=== PATIENT | male | born 1955 | race Caucasian/White ===

== ENCOUNTER 2017-10-26 15:58 | Observation (INO) | payer MEDICAID, OTHER ==
[~2017-10-26 15:58] MED LIST: ASPI325T PO; DICL75 PO; FURO20TA PO; HYDR7.5T32 OR; LANO0.2510 PO; METO50; SPIR25TA PO
[2017-10-26 16:12] VITALS: BP 122/68; PULSE 57; RESP 24; TEMP 97.4; O2SAT 97
[2017-10-26 17:10] VITALS: BP 122/82; PULSE 57; RESP 17; O2SAT 96
--- NOTE | 2017-10-26 17:10 | PD ---
HPI Chief Complaint: Chest Pain Time Seen by Provider: 16:42 Travel History International Travel<30 days: No Contact w/Intl Traveler<30days: No Traveled to known affect area: No History of Present Illness HPI 62-year-old male with a history of congestive heart failure presents emergency department complaining of shortness of breath, chest pain, and diaphoresis for "a while". Patient states that she is here today because his chest pain and shortness of breath have increased. Patient describes chest pain as right midsternal region radiating to the left anterior chest area described as achy and 4-5 out of 10 pain. Says he has had associated diaphoresis without nausea or vomiting. He denies any unusual back or abdominal pain. Patient says that he had an echocardiogram recently his ejection fraction was 25%. Patient is due to follow-up with dry ice maker, he does not know the name, next month for a possible heart cath. Patient denies fevers or chills. Has a history of hypertension, hyperlipidemia. He does take aspirin daily and to take his medication today. Denies tobacco use. PFSH Past Medical History Asthma: No Autoimmune Disease: No Blood Disorders: No Cancer: No Cardiovascular Problems: Yes Chemotherapy: No Chest Pain: Yes Congestive Heart Failure: Yes COPD: No Diabetes: No Endocrine: No Genitourinary: No Hypertension: Yes Immune Disorder: No Musculoskeletal: No Neurologic: No Psychiatric: No Respiratory: Yes Radiation Therapy: No Seizures: No Sickle Cell Disease: No Sleep Apnea: No Thyroid Disease: No Past Surgical History Abdominal Surgery: No AICD: No Cardiac Surgery: No Ear Surgery: No Endocrine Surgery: No Eye Surgery: No Genitourinary Surgery: No Gynecologic Surgery: No Oral Surgery: No Pacemaker: No Thoracic Surgery: No Social History Alcohol Use: Yes (SOCIALLY ON WEEKENDS) Tobacco Use: No Substance Use: No Allergies-Medications (Allergen,Severity, Reaction): Coded Allergies: No Known Allergies (Verified Allergy, Severe, 03/03/12) Reported Meds & Prescriptions Reported Meds & Active Scripts Active Reported Atorvastatin (Atorvastatin Calcium) 80 Mg Tab 80 Mg PO HS Lisinopril 20 Mg Tab 20 Mg PO DAILY Review of Systems Except as stated in HPI: all other systems reviewed are Neg Physical Exam Narrative GENERAL: Well-developed, well-nourished in no apparent distress, sitting upright SKIN: Focused skin assessment warm/dry. HEAD: Atraumatic. Normocephalic. EYES: Pupils equal and round. No scleral icterus. No injection or drainage. ENT: No nasal bleeding or discharge. Mucous membranes pink and moist. NECK: Trachea midline. No JVD. CARDIOVASCULAR: Regular rate and rhythm. No murmur appreciated. RESPIRATORY: No accessory muscle use. Faint rales particularly in the right lung echeverria GASTROINTESTINAL: Abdomen soft, non-tender, nondistended. Hepatic and splenic margins not palpable. MUSCULOSKELETAL: No obvious deformities. No clubbing. No cyanosis. No edema. NEUROLOGICAL: Awake and alert. No obvious cranial nerve deficits. Motor grossly within normal limits. Normal speech. PSYCHIATRIC: Appropriate mood and affect; insight and judgment normal. Data Data Last Documented VS Vital Signs Date Time Temp Pulse Resp B/P (MAP) Pulse Ox O2 Delivery O2 Flow Rate FiO2 10/26/17 18:25 52 16 109/64 (79) 97 Room Air 10/26/17 16:12 97.4 Orders Orders Electrocardiogram (10/26/17 16:14) B-Type Natriuretic Peptide (10/26/17 16:14) Ckmb (Isoenzyme) Profile (10/26/17 16:14) Complete Blood Count With Diff (10/26/17 16:14) Comprehensive Metabolic Panel (10/26/17 16:14) Prothrombin Time / Inr (Pt) (10/26/17 16:14) Act Partial Throm Time (Ptt) (10/26/17 16:14) Troponin I (10/26/17 16:14) Lipase (10/26/17 16:14) Chest, Pa & Lat (10/26/17 16:14) CKMB (10/26/17 16:38) CKMB% (10/26/17 16:38) Admit Order (Ed Use Only) (10/26/17 19:45) Activity Bed Rest With Brp (10/26/17 19:45) Vital Signs (Adult) Q4H (10/26/17 19:45) Cardiac Rhythm .As Directed (10/26/17 19:45) Notify Dr: Other .PRN (10/26/17 19:45) Notify Dr. Parameters (10/26/17 19:45) Resp Oxygen Nasal Cannula (10/26/17 ) Ckmb (Isoenzyme) Profile (10/26/17 19:45) Ckmb (Isoenzyme) Profile (10/26/17 22:45) Troponin I (10/26/17 19:45) Troponin I (10/26/17 22:45) Electrocardiogram (10/26/17 19:45) Electrocardiogram (10/26/17 22:45) ^ Obtain (10/26/17 19:45) Sodium Chloride 0.9% Flush (Ns Flush) (10/26/17 19:45) Sodium Chloride 0.9% Flush (Ns Flush) (10/26/17 21:00) Ondansetron Inj (Zofran Inj) (10/26/17 19:45) Lead Slot Technician / Telemetry DAVID.Q8H (10/26/17 19:45) CKMB (10/26/17 19:50) CKMB% (10/26/17 19:50) CKMB (10/26/17 22:50) CKMB% (10/26/17 22:50) Labs Laboratory Tests Test 10/26/17 16:38 10/26/17 18:53 Prothrombin Time 10.5 SEC Prothromb Time International Ratio 1.0 RATIO Activated Partial Thromboplast Time 25.8 SEC Blood Urea Nitrogen 18 MG/DL Creatinine 1.12 MG/DL Random Glucose 103 MG/DL Total Protein 6.7 GM/DL Albumin 3.6 GM/DL Calcium Level 8.9 MG/DL Alkaline Phosphatase 53 U/L Aspartate Amino Transf (AST/SGOT) 32 U/L Alanine Aminotransferase (ALT/SGPT) 39 U/L Total Bilirubin 0.7 MG/DL Sodium Level 140 MEQ/L Potassium Level 4.3 MEQ/L Chloride Level 105 MEQ/L Carbon Dioxide Level 29.2 MEQ/L Anion Gap 6 MEQ/L Estimat Glomerular Filtration Rate 66 ML/MIN Total Creatine Kinase 203 U/L Creatine Kinase MB 3.5 NG/ML Troponin I LESS THAN 0.02 NG/ML B-Type Natriuretic Peptide 51 PG/ML Lipase 116 U/L White Blood Count 5.2 TH/MM3 Red Blood Count 4.53 MIL/MM3 Hemoglobin 14.9 GM/DL Hematocrit 41.9 % Mean Corpuscular Volume 92.4 FL Mean Corpuscular Hemoglobin 32.8 PG Mean Corpuscular Hemoglobin Concent 35.5 % Red Cell Distribution Width 13.4 % Platelet Count 167 TH/MM3 Mean Platelet Volume 9.9 FL Neutrophils (%) (Auto) 54.1 % Lymphocytes (%) (Auto) 33.8 % Monocytes (%) (Auto) 7.5 % Eosinophils (%) (Auto) 4.0 % Basophils (%) (Auto) 0.6 % Neutrophils # (Auto) 2.8 TH/MM3 Lymphocytes # (Auto) 1.8 TH/MM3 Monocytes # (Auto) 0.4 TH/MM3 Eosinophils # (Auto) 0.2 TH/MM3 Basophils # (Auto) 0.0 TH/MM3 CBC Comment DIFF FINAL Differential Comment MDM Medical Decision Making Medical Screen Exam Complete: Yes Emergency Medical Condition: Yes Differential Diagnosis Acute on chronic congestive heart failure, angina, STEMI, NSTEMI Narrative Course 62-year-old male with a history of congestive heart failure, hyperlipidemia, hypertension presents emergency department complaining of chest discomfort and shortness of breath that has been persistent for several months. Patient is here today because he has more short of breath and the chest pain has been persistent and is concerned. Vitals are stable. EKG shows Sinus bradycardia with nonspecific ST segment changes. Possible LBBB. (last EKG from 2005 showed left axis deviation) The exam findings demonstrate faint rales on lung exam. Labs and imaging studies ordered. Last Impressions Chest X-Ray 10/26/17 1614 Signed Impressions: Service Date/Time: Thursday, October 26, 2017 17:56 - CONCLUSION: No acute cardiopulmonary disease. Javon Peña MD BNP 51, Troponin normal. No electrolyte abnormalities. CBC pending as of admission to chest pain center. Diagnosis Primary Impression: Chest pain Qualified Codes: R07.89 - Other chest pain Admitting Information Admitting Physician Requests: Observation Scripts Aspirin (Tgt Aspirin) 81 Mg Chw 81 MG CHEW DAILY for Blood Clot Prevention, #30 EA Prov: Rae Coronado MD 10/28/17 Furosemide (Furosemide) 20 Mg Tab 40 MG PO DAILY for edema , #30 TAB 0 Refills Prov: Rae Coronado MD 10/28/17 Metoprolol Succinate ER 24 HR (Metoprolol Succinate ER 24 HR) 50 Mg Tab 50 MG PO DAILY for Blood Pressure Management, #30 TAB 0 Refills Prov: Christofer Oliver 10/27/17 Condition: Stable Juliette Vann Oct 26, 2017 17:10
[2017-10-26] MEDS ORDERED: ATOR80TA45 PO (17:12)
[2017-10-26] MEDS ORDERED: LISI-515 PO (17:12)
[2017-10-26] MEDS ORDERED: ASPI-183 PO (17:12)
[2017-10-26] MEDS ORDERED: FURO20TA PO (17:12)
[2017-10-26] MEDS ORDERED: METO50TA PO (17:12)
[2017-10-26 17:23] LABS: PROTHROMBIN TIME - PATIENT 10.5 SEC (9.8-11.6)
[2017-10-26 17:31] LABS: ALKALINE PHOSPHATASE 53 U/L (45-117); TOTAL BILIRUBIN ADULT 0.7 MG/DL (0.2-1.0); TOTAL PROTEIN 6.7 GM/DL (6.4-8.2); TROPONIN I LESS THAN 0.02 NG/ML (0.02-0.05)
[2017-10-26 17:34] LABS: ALBUMIN 3.6 GM/DL (3.4-5.0); ALT (GPT) 39 U/L (12-78); AST (GOT) 32 U/L (15-37); BICARBONATE 29.2 MEQ/L (21.0-32.0); BLOOD UREA NITROGEN 18 MG/DL (7-18); CALCIUM 8.9 MG/DL (8.5-10.1); CHLORIDE 105 MEQ/L (98-107); CREATININE 1.12 MG/DL (0.60-1.30); GLOMERULAR FILTRATION RATE 66 ML/MIN (>89); GLUCOSE,RANDOM 103 MG/DL (74-106); SODIUM (NA) 140 MEQ/L (136-145)
[2017-10-26 18:25] VITALS: BP 109/64; PULSE 52; RESP 16; O2SAT 97
--- NOTE | 2017-10-26 18:28 | RADRPT ---
EXAM DATE/TIME: 10/26/2017 17:56 [facility] COMPARISON: No previous studies available for comparison. INDICATIONS : Chest pain. MEDICAL HISTORY : Hypertension. Congestive heart failure. SURGICAL HISTORY : None. ENCOUNTER: Initial ACUITY: 1 month PAIN SCORE: 7/10 LOCATION: Bilateral chest FINDINGS: PA and lateral views of the chest demonstrate the lungs to be symmetrically aerated without evidence of mass, infiltrate or effusion. The cardiomediastinal contours are unremarkable. Osseous structure s are intact. CONCLUSION: No acute cardiopulmonary disease. Javon Peña MD on October 26, 2017 at 18:26 Board Certified Radiologist. This report was verified electronically.
[2017-10-26] MEDS ORDERED: ONDANSETRON HCL 4 MG/2 ML VIAL IV PUSH PRN (19:45)
[2017-10-26] MEDS ORDERED: SODIUM CHLORIDE 0.9% FLUSH 10 ML FLUSH IV FLUSH PRN (19:45)
[2017-10-26] MEDS ORDERED: IOHEXOL 350 MG/ML 100 ML BTL (for Cath Lab) OTHER ONE (19:49)
[2017-10-26 20:23] LABS: AUTOMATED NEUTROPHIL # 2.8 TH/MM3 (1.8-7.7); BASOPHIL % 0.6 % (0.0-2.0); EOSINOPHIL # 0.2 TH/MM3 (0-0.4); HEMATOCRIT 41.9 % (39.0-51.0); HEMOGLOBIN 14.9 GM/DL (13.0-17.0); LYMPH % 33.8 % (9.0-44.0); LYMPHOCYTE # 1.8 TH/MM3 (1.0-4.8); MEAN CELL VOLUME 92.4 FL (80.0-100.0); MEAN CORPUSCULAR HEMOGLOBIN 32.8 PG (27.0-34.0); MEAN CORPUSCULAR HGB CONC 35.5 % (32.0-36.0); MEAN PLATELET VOLUME 9.9 FL (7.0-11.0); MONO % 7.5 % (0.0-8.0); MONOCYTE # 0.4 TH/MM3 (0-0.9); NEUT % 54.1 % (16.0-70.0); PLATELET COUNT 167 TH/MM3 (150-450); RED BLOOD COUNT 4.53 MIL/MM3 (4.50-5.90); RED CELL DISTRIBUTION WIDTH 13.4 % (11.6-17.2); WHITE BLOOD COUNT 5.2 TH/MM3 (4.0-11.0)
[2017-10-26] MEDS: SODIUM CHLORIDE 0.9% FLUSH 10 ML FLUSH IV FLUSH SCH (21:00)
[2017-10-26 22:01] LABS: TROPONIN I LESS THAN 0.02 NG/ML (0.02-0.05)
[2017-10-26 22:23] VITALS: BP 128/62; PULSE 62; RESP 18; TEMP 97.9; O2SAT 96
[2017-10-26 23:43] LABS: TROPONIN I LESS THAN 0.02 NG/ML (0.02-0.05)
[2017-10-27] VITALS (8 sets, daily range): BP systolic 109–157; BP diastolic 63–89; PULSE 47–89; RESP 18–20; TEMP 97.9–98.8; O2SAT 92–98
[2017-10-27] MEDS: SODIUM CHLORIDE 0.9% FLUSH 10 ML FLUSH IV FLUSH SCH ×2 (08:24→20:45)
[2017-10-27] MEDS ORDERED: SODIUM CHLOR 0.9% 1000 ML INJ 1,000 ML IV SCH (10:43)
[2017-10-27] MEDS ORDERED: METO1TAB9 PO (10:48)
[2017-10-27] MEDS ORDERED: FUROSEMIDE 20 MG TAB PO SCH (11:00)
[2017-10-27] MEDS ORDERED: ASPIRIN 325 MG TAB PO SCH (11:00)
[2017-10-27] MEDS ORDERED: METOPROLOL TARTRATE 25 MG TAB PO PRN (11:30)
[2017-10-27] MEDS ORDERED: CHLORHEXIDINE GLUCONATE 2 % 1 PACK (2 CLOTHS) TOPICAL PRN (11:30)
[2017-10-27] MEDS ORDERED: LACTATED RINGER'S 1000 ML IV PRN (11:30)
[2017-10-27] MEDS ORDERED: SODIUM CHLORID 0.9% 500 ML IV PRN (11:30)
[2017-10-27] MEDS ORDERED: POVIDONE IODINE 5% (ANTISEPSIS KIT) 4 APPLICATIONS EACH NARE PRN (11:30)
[2017-10-27] MEDS: METOPROLOL SUCCINATE 50 MG EXTENDED RELEASE TAB PO SCH (11:35)
[2017-10-27] MEDS: LISINOPRIL 20 MG TAB PO SCH (11:35)
--- NOTE | 2017-10-27 11:41 | HHI.HP ---
[facility] Primary Care Physician Cody Caballero D.O. Chief Complaint Chest pain History of Present Illness This is a 62-year-old male with history of hypertension and hyperlipidemia that presents to ED with a complaint of chest pain with shortness of breath with exertion intermittently for the past month. He saw his single end sewer for this and had a stress test a couple weeks ago states that he was told that his heart function was down and that he would need to have a procedure done. He states the discomfort occurs with walking and will last anywhere from 30 minutes to an hour. He states that he will take a nitro which she will use to help the symptoms within about 15-20 minutes. Is followed diaphoretic at time as well. No nausea. Currently denies chest discomfort. Voices compliance with medications. Denies recent illness. Denies fevers or chills. Review of Systems General: Patient denies fevers, chills, and recent travel HEENT: Patient denies headache, sore throat, difficulty swallowing. Cardiovascular: Has the chest discomfort as mentioned above. Denies sensation of heart beating rapidly or irregularly. No syncope. Denies diaphoresis. Respiratory: He has been short of breath. Denies inspirational chest discomfort. Denies coughing wheezing or hemoptysis. GI: Patient denies nausea, vomiting, diarrhea, abdominal pain, bloody stools. Musculoskeletal: Patient denies joint pain or edema. Denies calf pain or edema. Neurovascular: Patient denies numbness, tingling, weakness in extremities. Denies headache. Endocrine: Denies polyuria and polydipsia. Hematologic: Denies easy bruising. Skin: Denies rash or itching. Past Family Social History Allergies: Coded Allergies: No Known Allergies (Verified Allergy, Severe, 03/03/12) Past Medical History Hypertension and hyperlipidemia. Denies diabetes and known CAD. Past Surgical History Noncontributory. Reported Medications Reported Meds & Active Scripts Active Metoprolol Succinate ER 24 HR (Metoprolol Succinate) 50 Mg Tab 50 Mg PO DAILY Reported Atorvastatin (Atorvastatin Calcium) 80 Mg Tab 80 Mg PO HS Furosemide 20 Mg Tab 20 Mg PO DAILY Lisinopril 20 Mg Tab 20 Mg PO DAILY Aspirin 325 Mg Tab 325 Mg PO DAILY Active Ordered Medications Current Medications Medications (Trade) Dose Ordered Sig/Blanca Route Start Time Stop Time Status Last Admin (NS Flush) 2 ml UNSCH PRN IV FLUSH 10/26/17 19:45 (NS Flush) 2 ml BID IV FLUSH 10/26/17 21:00 10/27/17 08:24 (Zofran Inj) 4 mg Q6H PRN IV PUSH 10/26/17 19:45 Sodium Chloride 1,000 ml @ 50 mls/hr Q20H IV 10/27/17 10:43 10/28/17 05:25 10/27/17 11:27 (Lipitor) 80 mg HS PO 10/27/17 21:00 (Aspirin) 325 mg DAILY PO 10/27/17 11:00 (Lasix) 20 mg DAILY PO 10/27/17 11:00 (Prinivil) 20 mg DAILY PO 10/27/17 11:00 (Toprol Xl) 50 mg DAILY PO 10/27/17 11:00 Lactated Ringer's 1,000 ml @ 30 mls/hr Q24H PRN IV 10/27/17 11:30 10/30/17 11:29 Sodium Chloride 500 ml @ 30 mls/hr [id number] PRN IV 10/27/17 11:30 10/30/17 11:29 (Lopressor) 25 mg MANAGER OF INTERNATIONAL PRN PO 10/27/17 11:30 10/30/17 11:29 (Betadine 5% Antisepsis Kit) 1 applic MANAGER [employer] PRN EACH NARE 10/27/17 11:30 10/30/17 11:29 (Chlorhexidine 2% Cloth) 3 pack MANAGER OF [employer] PRN TOPICAL 10/27/17 11:30 10/30/17 11:29 Family History Denies family history of CAD. Social History Non-smoker. Occasional alcohol. Denies illicit drugs. Physical Exam Vital Signs Vital Signs Date Time Temp Pulse Resp B/P (MAP) Pulse Ox O2 Delivery O2 Flow Rate FiO2 10/27/17 07:40 98.8 47 18 120/67 (84) 97 10/27/17 04:35 97.9 62 18 109/63 (78) 92 10/27/17 04:06 50 10/27/17 00:05 62 10/26/17 22:23 97.9 62 18 128/62 (84) 96 10/26/17 20:13 10/26/17 18:25 52 16 109/64 (79) 97 Room Air 10/26/17 17:10 57 17 122/82 (95) 96 Room Air 10/26/17 16:12 97.4 57 24 122/68 (86) 97 Physical Exam GENERAL: This is a well-nourished, well-developed patient, in no apparent distress. Patient speaks in clear complete sentences. Patient is pleasant. HEENT: Head is atraumatic and normocephalic. Neck is supple without lymphadenopathy and trachea is midline. No JVD or carotid bruits. CARDIOVASCULAR: Regular rate and rhythm without murmurs, gallops, or rubs. RESPIRATORY: Clear to auscultation. Breath sounds equal bilaterally. No wheezes , rales, or rhonchi. Chest wall is nontender. No use of accessory muscles. GASTROINTESTINAL: Abdomen is nontender, nondistended. Abdomen soft. No obvious pulsatile mass or bruit. No CVA tenderness. Strong femoral pulses bilaterally. Normal bowel sounds in all quadrants. MUSCULOSKELETAL: Patient is moving upper and lower extremities freely. No calf tenderness or edema, no Homans sign. Strong pulses in upper and lower extremities. NEUROLOGICAL: Patient is alert and oriented. Cranial nerves 2-12 are grossly intact. No focal deficits and speech is clear. SKIN: No rash and turgor is normal. Laboratory Laboratory Tests Test 10/26/17 16:38 10/26/17 18:53 10/26/17 19:50 10/26/17 22:50 Prothrombin Time 10.5 Prothromb Time International Ratio 1.0 Activated Partial Thromboplast Time 25.8 Blood Urea Nitrogen 18 Creatinine 1.12 Random Glucose 103 Total Protein 6.7 Albumin 3.6 Calcium Level 8.9 Alkaline Phosphatase 53 Aspartate Amino Transf (AST/SGOT) 32 Alanine Aminotransferase (ALT/SGPT) 39 Total Bilirubin 0.7 Sodium Level 140 Potassium Level 4.3 Chloride Level 105 Carbon Dioxide Level 29.2 Anion Gap 6 Estimat Glomerular Filtration Rate 66 Total Creatine Kinase 203 180 164 Creatine Kinase MB 3.5 3.0 2.6 Troponin I LESS THAN 0.02 LESS THAN 0.02 LESS THAN 0.02 B-Type Natriuretic Peptide 51 Lipase 116 White Blood Count 5.2 Red Blood Count 4.53 Hemoglobin 14.9 Hematocrit 41.9 Mean Corpuscular Volume 92.4 Mean Corpuscular Hemoglobin 32.8 Mean Corpuscular Hemoglobin Concent 35.5 Red Cell Distribution Width 13.4 Platelet Count 167 Mean Platelet Volume 9.9 Neutrophils (%) (Auto) 54.1 Lymphocytes (%) (Auto) 33.8 Monocytes (%) (Auto) 7.5 Eosinophils (%) (Auto) 4.0 Basophils (%) (Auto) 0.6 Neutrophils # (Auto) 2.8 Lymphocytes # (Auto) 1.8 Monocytes # (Auto) 0.4 Eosinophils # (Auto) 0.2 Basophils # (Auto) 0.0 CBC Comment DIFF FINAL Differential Comment Result Diagram: 10/26/17 1853 10/26/17 1638 Imaging Last 48 hours Impressions Chest X-Ray 10/26/17 1614 Signed Impressions: Service Date/Time: Thursday, October 26, 2017 17:56 - CONCLUSION: No acute cardiopulmonary disease. Javon Peña MD Course EKGs are sinus rhythm with nonspecific inferior and lateral T-wave changes. Caprini VTE Risk Assessment Caprini VTE Risk Assessment: Mod/High Risk (score >= 2) Caprini Risk Assessment Model Point Value = 1 Point Value = 2 Point Value = 3 Point Value = 5 Age 41-60 Minor surgery BMI > 25 kg/m2 Swollen legs Varicose veins or History of unexplained or recurrent spontaneous Oral contraceptives or hormone replacement Sepsis (< 1 month) Serious lung disease, including pneumonia (< 1 month) Abnormal pulmonary function Acute myocardial infarction Congestive heart failure (< 1 month) History of inflammatory bowel disease Medical patient at bed rest Age 61-74 Arthroscopic surgery Major open surgery (> 45 min) Laparoscopic surgery (> 45 min) Malignancy Confined to bed (> 72 hours) Immobilizing plaster cast Central venous access Age >= 75 History of VTE Family history of VTE Factor V Leiden Prothrombin [id number] Lupus anticoagulant Anticardiolipin antibodies Elevated serum homocysteine Heparin-induced thrombocytopenia Other congenital or acquired thrombophilia Stroke (< 1 month) Elective arthroplasty Hip, pelvis, or leg fracture Acute spinal cord injury (< 1 month) Prophylaxis Regimen Total Risk Factor Score Risk Level Prophylaxis Regimen 0-1 Low Early ambulation 2 Moderate Order ONE of the following: *Sequential Compression Device (SCD) *Heparin 5000 units SQ BID 3-4 Higher Order ONE of the following medications: *Heparin 5000 units SQ TID *Enoxaparin/Lovenox 40 mg SQ daily (WT < 150 kg, CrCl > 30 mL/min) *Enoxaparin/Lovenox 30 mg SQ daily (WT < 150 kg, CrCl > 10-29 mL/min) *Enoxaparin/Lovenox 30 mg SQ BID (WT < 150 kg, CrCl > 30 mL/min) AND/OR *Sequential Compression Device (SCD) 5 or more Highest Order ONE of the following medications: *Heparin 5000 units SQ TID (Preferred with Epidurals) *Enoxaparin/Lovenox 40 mg SQ daily (WT < 150 kg, CrCl > 30 mL/min) *Enoxaparin/Lovenox 30 mg SQ daily (WT < 150 kg, CrCl > 10-29 mL/min) *Enoxaparin/Lovenox 30 mg SQ BID (WT < 150 kg, CrCl > 30 mL/min) AND *Sequential Compression Device (SCD) Assessment and Plan Assessment and Plan * Chest pain: Patient had serial cardiac enzymes and EKGs for ruling out purposes. He was seen by Dr. Shepard of cardiology in the chest pain center. I discussed the patient with his single end sewer which is Dr. Holly and states that he had a stress test a couple weeks ago and a large apical defect with mild reversibility with an EF of 20%. Also had a 2D echo revealing a EF of 35% afterwards. He has requested that the patient be admitted and have cardiology consult for heart catheterization. I discussed this patient with Dr. Glover has graciously agreed to evaluate the patient will likely take him to the [facility]. Also discussed the patient with Dr. Rocha and he will accept the patient at this time. Further plan pending the evaluation of Dr. Glover. Will resume his home medications. We have requested the records of his stress test from his single end sewer office. Patient is agreeable to this plan. Stable at this time. * Hypertension: Continue current medication. * Hyperlipidemia: Continue current medication. Christofer Oliver Oct 27, 2017 11:41
[2017-10-27] MEDS ORDERED: NITROGLYCERIN INJ 5 ML ONE (12:32)
[2017-10-27] MEDS ORDERED: HEPARIN-NS/PF FLUSH BAG 1,000 ML IV FLUSH ONE (12:32)
[2017-10-27] MEDS ORDERED: HEPARIN SODIUM - IV 10,000 UNITS/10 ML VIAL ONE (12:32)
[2017-10-27] MEDS ORDERED: MIDAZOLAM HCL 2 MG/2 ML VIAL ONE (12:32)
[2017-10-27] MEDS ORDERED: BISACODYL 10 MG SUPP RECTAL PRN (13:30)
[2017-10-27] MEDS ORDERED: ONDANSETRON HCL 4 MG/2 ML VIAL IVP PRN (13:30)
[2017-10-27] MEDS ORDERED: SODIUM CHLORIDE 0.9% FLUSH 10 ML FLUSH IV FLUSH PRN (13:30)
[2017-10-27] MEDS ORDERED: MAGNESIUM HYDROXIDE SUSP 30 ML CUP PO PRN (13:30)
[2017-10-27] MEDS ORDERED: NALOXONE HCL 0.4 MG/ML AMP IV PUSH PRN (13:30)
[2017-10-27] MEDS ORDERED: SENNOSIDES 8.6 MG TAB PO PRN (13:30)
[2017-10-27] MEDS ORDERED: ACETAMINOPHEN 325 MG TAB PO PRN ×2 (13:30)
[2017-10-27] MEDS ORDERED: LACTULOSE SYRUP 20 GM/30 ML CUP PO PRN (13:30)
--- NOTE | 2017-10-27 13:32 | CATHPROC ---
[employer] HIS Report Study Information Study Number Admission Scheduled Start Study Start [id number] Oct 26 2017 7:48PM 10/27/2017 Oct 27 2017 11:50AM [facility] Service Cardiac Catheterization Admit Source Facility Department Emergency department [facility] - Content Publisher Physician and Clinical Staff Initial Nehemiah Jean Software Clerk Yanet Wright RN Recorder Juanita Li,RT(R) Scrub Rdaha Stanford,RT(R) Procedures Performed Procedure Location (Site) Vessel Name Coronary Angiograms LCA Left Coronary Coronary Angiograms RCA Right Coronary Wire insertion Radial (right) Radial Art. Equipment Time Content Architect Description Size Mfg Part Number Used/Scraped CATHETER, FR5 SWAN DEXTER 12:30 [employer] FR 5 [id number] *[id number] Used MONITOR TRANSDUCER, TRUWAVE [id number] 11:52 WHEELER ORDAZ * Used W/STOCKCOCK *[id number] [id number] *[id number] [id number] *[id number] 534-518T *[id number] [id number] *[id number] 11:52 [employer] INDUSTRIES PACK, CCL CUSTOM * Used *[id number] BAND, RADIAL COMPRESSION TR [id number] 13:16 [employer] 29CM Used LARGE 29 *[id number] 11:52 [employer] WIRE, 3MMJ .035 180CM 180CM Used *[id number] 11:52 NAMIC MANIFOLD, 4 PORT * Used *[id number] 11:52 [employer] OMNIPAQUE, 350 MG, 150ML 150ML [id number] Used [id number] 11:52 [employer] BLANKET,WARM AIR CCL * Used *[id number] SHEATH, FR6 TRANSRADIAL [id number] 12:29 [employer] FR 6 Used SLENDER 10CM *[id number] SHEATH, FR6 TRANSRADIAL [id number] 12:29 [employer] FR 6 Used SLENDER 10CM *[id number] Equipment Model, Serial, Lot Number and Expiration Data Description Model Number Serial Number Lot Number Expiration Date BAND, RADIAL COMPRESSION TR [id number] 04-23-2020 LARGE 29 History: Current Medications Medication Dosage/Unit Route Frequency Last Date/Time Taken ASA History: Allergies Allergy Reaction No Known Allergies History: Risk Factors Family History of Hypertension Dyslipidemia Previous MT Previous Heart Failure Premature CAD Yes Yes No No Yes Prior Valve Prior PCI Prior CABG Surgery No No No Cerebrovascular Peripheral Artery Chronic Lung On Dialysis Diabetes Disease Disease Disease No No No No No History: Risk Factors Selection Items Hyperlipidemia Obesity History: Symptoms/Diagnosis Selection Items Chest pain SOB History: Stress Tests Stress or Imaging Studies Performed Yes Standard Exercise Stress Test No Stress Echo No Stress Test SPECT Stress Test SPECT Result Stress Test SPECT Ischemia Risk/Extent Yes Positive High Stress Test CMR No Cardiac CTA Coronary Calcium Score No No History: Other Disease Selection Items HTN History: Other Current Smoker No Labs Hgb (g/dl) Hct (%) RBC (MIL/MM3) WBC (l/cumm) Platelets (thousands) 11.60-17.00 35.00-51.00 4.00-5.90 4.00-11.00 150.00-450.00 14.9 41.9 4.5 5.2 167 Glucose (mg/dl) BUN (mg/dl) Creatinine (mg/dl) BUN:Creatinine (1:x) 74.00-106.00 7.00-18.00 0.50-1.30 10.00-20.00 103 18 1.1 16.4 Na (meq/l) K (meq/l) Cl (meq/l) CO2 (mmol/L) Ca (mg/dl) 136.00-145.00 3.50-5.10 98.00-107.00 21.00-32.00 8.50-10.10 140 4.3 105 29.2 8.9 PT (sec) PTT (sec) INR (PTT:PT) 9.80-11.60 24.30-30.10 0.90-1.10 10.5 25.8 1 Troponin I (ng/ml) CPK (u/l) CPK-MB (ng/ML) 0.02-0.05 26.00-308.00 0.50-3.60 0.02 203 3.5 Medication Medication Total Dose (Bolus/Oral) Medication Total Dosage/Unit 1% XYLOCAINE 40 mL FENTANYL 50 mcg RADIAL COCKTAIL 5 mL (Bolus) Medications (Bolus/Oral) Medication Time Given Dosage/Unit Administered By Reason RADIAL COCKTAIL 10/27/2017 12:38:25 PM 5 mL (Bolus) Nehemiah Glover Patient received 5 mL (Bolus) RADIAL COCKTAIL via Radial. Using [Solution Name]. Reason: Ntg 200mcg H eparin 4100U. FENTANYL 10/27/2017 12:42:16 PM 50 mcg Yanet Wright 50 mcg FENTANYL given in lab by Yanet Wright, LEYDI in Left Antecubital via Peripheral IV. Ordered by Nehemiah Glover 1% XYLOCAINE 10/27/2017 12:42:28 PM 20 mL Nehemiah Glover 20 mL 1% XYLOCAINE given in lab by Nehemiah Glover in Right Radial via Subcutaneous. 1% XYLOCAINE 10/27/2017 12:46:40 PM 20 mL Nehemiah Glover 20 mL 1% XYLOCAINE given in lab by Nehemiah Glover in Right arm via Subcutaneous. Medication (Drip) Medication Time Given Dosage/Unit Concentration/Unit Diluent (ml) Solution IV Solutions 10/27/2017 12:12:05 PM 0 mL (IV) 500 NaCl .9 Patient arrived on IV Solutions in Left Antecubital via Peripheral IV. Pump/Drip Flow = 20 ml/hr usin g NaCl .9. Initial Case Assessment Cardiovascular HR Rhythm NIBP Chest Pain 58 viktor 143/89 0 Edema Present Skin color Skin None Normal Warm Dry Circulatory - Right Pulses Dorsalis Pedis Femoral Radial 2 2 3 Scale (0,1,2,3,4,d) Circulatory - Left Pulses Dorsalis Pedis Femoral Radial 2 2 Scale (0,1,2,3,4,d) Neurological State Oriented to time-place- Alert Moves all extremities person Respiration - General Respiration Rate SpO2 (%) (B/min) 17 96 Chronological Log Time Study Chronological Log 12:11:12 Patient arrived via Bed. 12:11:13 Patient Name, D.O.B, / Armband Verified By R.N. 12:11:14 Consent signed by the physician and the patient and verified by the Content Publisher staff. 12:11:15 Pre-op and post- op instructions given; patient acknowledges understanding of instructions. 12:11:15 Verbal Stimulation=2 Physical Stimulation=2 Airway=2 Respiration=2 TOTAL=8. (0=absent, 1=li mited, 2=present) 12:11:16 Presedation assessment performed by Content Publisher RN. 12:11:30 Allens test performed on the right radial and ulnar artery. 12:11:33 Patient has been NPO for More than 6Hrs. 12:11:34 Skin Breakdown- none per patient. 12:11:49 Patient Warmer Placed on the Table. 12:11:51 [place] Prominences Protected 12:11:53 A # 20 IV was noted in the Hand (right). Grade = 0 12:12:05 Patient arrived on IV Solutions in Left Antecubital via Peripheral IV. Pump/Drip Flow = 20 ml/hr using NaCl .9. 12:12:31 History and physical on the chart or being dictated. 12:12:32 A # 20 IV was noted in the Antecubital (left). Grade = 0 Assessment: Initial Case, HR=58 BPM, Rhythm=viktor, CJQU=535/89 mmhg, Chest Pain=0, Edema=None, Color=Normal, Skin = Warm, Dry Right Pulses: Matti Ped=2, Femoral=2, Radial=3 12:13:16 Left Pulses: Matti Ped=2, Femoral=2 Neurological: State=Alert, Ox3, HOOD Respiration: Resp=17 B/min, SpO2=96 % Vitals capture started with the following parameters, Patient=Adult, Interval=5 min, Initial Pr anfbyg=139 mmHg, 12:23:02 Deflation Rate=5 mmHg, Cuff placed on Left Leg 12:23:52 Reference ECG taken 12:24:17 HR=64 bpm, UJER=379/89 mmhg, SpO2=95.0 %, Resp=15 B/min 12:25:30 MD arrived. Right Radial and right brachial and bilateral groins prepped with 2% chlorhexidine, and draped after a 3 min. waiting 12:26:40 time. 12:28:37 HR=58 bpm, BAIN=189/96 mmhg, SpO2=97.0 %, Resp=15 B/min 12:33:42 HR=52 bpm, IOXD=373/80 mmhg, SpO2=98.0 %, Resp=17 B/min 12:36:43 Pressure channel 1 zeroed. Patient received 5 mL (Bolus) RADIAL COCKTAIL via Radial. Using [Solution Name]. Reason: Ntg 20 0mcg Heparin 12:38:25 4100U. 12:38:39 HR=53 bpm, EKHF=074/89 mmhg, SpO2=95 %, Resp=13 B/min Time Out. Correct patient, correct procedure, correct physician, power injector not loaded with contrast with surgical 12:40:34 team present. Time Out Concurred by MD and individual staff in procedure. 12:41:39 Case Start 50 mcg FENTANYL given in lab by Yanet Wright RN in Left Antecubital via Peripheral IV. Orde red by Adalberto, 12:42:16 Nehemiah Lizarraga. 12:42:28 20 mL 1% XYLOCAINE given in lab by Nehemiah Glover in Right Radial via Subcutaneous. 12:43:36 Access site was Right Radial Artery. 12:43:38 HR=53 bpm, QEYS=944/93 mmhg, SpO2=94 %, Resp=18 B/min A SHEATH, FR6 TRANSRADIAL SLENDER 10CM FR 6 was advanced into the Radial (right) using the Perc utaneous 12:43:52 technique. 12:46:40 20 mL 1% XYLOCAINE given in lab by Nehemiah Glover in Right arm via Subcutaneous. 12:48:41 HR=56 bpm, IYTL=607/85 mmhg, SpO2=90.0 %, Resp=15 B/min 12:49:10 Access site was right Brachial vein via ultrasound. A SHEATH, FR6 TRANSRADIAL SLENDER 10CM FR 6 was advanced into the Brach. Vein (right) using the Percutaneous 12:49:24 technique. 12:50:30 A CATHETER, FR5 SWAN DEXTER MONITOR FR 5 was inserted via Brach. Vein (right) Recorded Pressure: PCW, HR=60, Condition=Condition 1 12:51:26 (Pulmonary Capillary Wedge) PCW 25//19 12:52:05 Saturation: Site=Ao (Aorta) , O2=98 %, Hgb=14.9 gm/dl, Condition=Condition 1. Used in calcu lation. 12:52:08 Saturation: Site=PA (Pulmonary Artery) , O2=69.8 %, Hgb=14.9 gm/dl, Condition=Condition 1. Used in calculation. Recorded Pressure: MPA, HR=53, Condition=Condition 1 12:52:53 (Main Pulmonary Artery) MPA 35/18/25 12:53:40 HR=54 bpm, LDPB=079/88 mmhg, SpO2=92 %, Resp=17 B/min Recorded Pressure: RV, HR=57, Condition=Condition 1 12:54:35 (Right Ventricle) RV 33/6/13 Recorded Pressure: RA, HR=50, Condition=Condition 1 12:55:01 (Right Atrium) RA 05/08/10 12:55:10 [place] Dexter Catheter Removed A JR 4.0 INFINITI CATHETER FR 5 was advanced over a wire. OMNIPAQUE, 350 MG, 150ML 150ML was us ed for 12:55:51 injections. Recorded Pressure: LV, HR=54, Condition=Condition 1 12:58:14 (Left Ventricle) LV 124/12/29 Recorded Pressure: LV, Ao, HR=51, Condition=Condition 1 12:58:36 (Left Ventricle) LV 127/13/31, (Aorta) Ao 127/79/99 12:58:41 HR=51 bpm, AJCL=477/84 mmhg, SpO2=93 %, Resp=18 B/min 13:00:47 A WIRE, 3MMJ .035 180CM 180CM was inserted via Radial (right). 13:01:53 Wire removed After removing the current catheter a JL 3.5 INFINITI CATHETER FR 5 was advanced over a WIRE, 3 MMJ .035 180CM 13:02:54 180CM. 13:03:38 HR=55 bpm, SOLD=666/81 mmhg, SpO2=91 %, Resp=18 B/min Recorded Pressure: Ao, HR=52, Condition=Condition 1 13:04:36 (Aorta) Ao 124/79/98 13:05:59 The LCA was injected and visualized at various angles. OMNIPAQUE, 350 MG, 150ML 150ML used . After removing the current catheter a 3DRC INFINITI CATHETER FR 6 was advanced over a WIRE, 3MM J .035 180CM 13:07:10 180CM. 13:08:39 HR=56 bpm, OCSK=649/76 mmhg, SpO2=95 %, Resp=19 B/min After removing the current catheter a AR MOD INFINITI CATHETER FR 6 was advanced over a WIRE, 3 MMJ .035 180CM 13:12:02 180CM. 13:14:07 HR=58 bpm, NEMT=815/89 mmhg, SpO2=94 %, Resp=12 B/min 13:14:30 The RCA was injected and visualized at various angles. OMNIPAQUE, 350 MG, 150ML 150ML used . 13:16:11 Catheter was removed 13:18:16 Activated Clotting Time Drawn 13:19:01 Case End 13:19:16 HR=62 bpm, GDHH=434/94 mmhg, SpO2=95.0 %, Resp=15 B/min 13:21:45 ACT (Normal Range 90-180) = 197 Radial Compression Device Used. 15 mLs of air placed in BAND, RADIAL COMPRESSION TR LARGE 29 29 CM. Affected 13:22:38 hand ~O2 SATURATION~ % O2 saturation. 13:23:43 WVWQ=681/93 mmhg, SpO2=94.0 % 13:23:50 Vitals capture stopped. 13:24:00 Venous Sheath left in place, will be removed in Holding Area when ACT is below 180 13:25:03 Sterile dressing applied to site 13:25:04 No case complications noted. 13:25:05 Cine recording checked. 13:25:10 Holding Area notified. 13:25:16 Bedside Report will be given. 13:25:20 A Left and Right Heart Cath was performed. 13:30:33 Patient moved to [facility] End Study - Contrast Media Used In Study Contrast Total Opened (mL) Total Used (mL) Total Wasted (mL) Omnipaque 75 75 0 End Study - Maximum Contrast Load Max Contrast Load (mL) 464.5 End Study - Radiation Exposure Fluoro Time (minutes) 8.3 End Study - Patient Disposition Complications Transferred To Interventional Outcome No Telemetry Bed No attempt made
--- NOTE | 2017-10-27 13:40 | PD.CONS ---
HPI Service [facility] Consult Requested By Dr. Shepard Reason for Consult Medical management Primary Care Physician Cody Caballero D.O. Diagnoses: History of Present Illness This is a 63-year-old male with a history of CMP/CHF, hypertension and hyperlipidemia. He has been admitted to the chest pain center because of worsening chest pain and shortness of breath. He has exertional chest pain relieved with sublingual nitroglycerin. He has associated diaphoresis but no nausea, dizziness and palpitations. He had recent outpatient stress test with this chart computer which was abnormal and recommended cardiac catheterization. Consultation has been requested by his attending to evaluate and manage multiple medical conditions and for transfer of care. At this time, patient denies chest pain. He also has improving shortness of breath. Discussed with Dr. Glover who plans to do cardiac catheterization this afternoon. He has been made n.p.o. All other systems reviewed negative t Review of Systems Except as stated in HPI: all other systems reviewed are Neg Past Family Social History Allergies: Coded Allergies: No Known Allergies (Verified Allergy, Severe, 03/03/12) Past Medical History As previously mentioned Past Surgical History Orthopedic injuries Reported Medications Metoprolol Succinate ER 24 HR (Metoprolol Succinate) 50 Mg Tab 50 Mg PO DAILY Reported Atorvastatin (Atorvastatin Calcium) 80 Mg Tab 80 Mg PO HS Furosemide 20 Mg Tab 20 Mg PO DAILY Lisinopril 20 Mg Tab 20 Mg PO DAILY Aspirin 325 Mg Tab 325 Mg PO DAILY Family History No CAD Social History Occasional alcohol use does not smoke Physical Exam Vital Signs Vital Signs Date Time Temp Pulse Resp B/P (MAP) Pulse Ox O2 Delivery O2 Flow Rate FiO2 10/27/17 07:40 98.8 47 18 120/67 (84) 97 10/27/17 04:35 97.9 62 18 109/63 (78) 92 10/27/17 04:06 50 10/27/17 00:05 62 10/26/17 22:23 97.9 62 18 128/62 (84) 96 10/26/17 20:13 10/26/17 18:25 52 16 109/64 (79) 97 Room Air 10/26/17 17:10 57 17 122/82 (95) 96 Room Air 10/26/17 16:12 97.4 57 24 122/68 (86) 97 Physical Exam GENERAL: This is an obese, well-developed patient, in no apparent distress. SKIN: No rashes, ecchymoses or lesions. Cool and dry. HEAD: Atraumatic. Normocephalic. No temporal or scalp tenderness. EYES: Pupils equal round and reactive. Extraocular motions intact. No scleral icterus. No injection or drainage. ENT: Nose without bleeding, purulent drainage or septal hematoma. Throat without erythema, tonsillar hypertrophy or exudate. Uvula midline. Airway patent. NECK: Trachea midline. No JVD or lymphadenopathy. Supple, nontender, no meningeal signs. CARDIOVASCULAR: Regular rate and rhythm without murmurs, gallops, or rubs. RESPIRATORY: Clear to auscultation. Breath sounds equal bilaterally. No wheezes , rales, or rhonchi. GASTROINTESTINAL: Abdomen soft, non-tender, nondistended. No guarding. MUSCULOSKELETAL: Extremities without clubbing, cyanosis but with bilateral lower extremity pitting edema. No joint tenderness, effusion, or edema noted. No calf tenderness. Negative Homans sign bilaterally. NEUROLOGICAL: Awake and alert. Cranial nerves II through XII intact. Motor and sensory grossly within normal limits. Five out of 5 muscle strength in all muscle groups. Normal speech. Laboratory Laboratory Tests Test 10/26/17 16:38 10/26/17 18:53 10/26/17 19:50 10/26/17 22:50 Prothrombin Time 10.5 Prothromb Time International Ratio 1.0 Activated Partial Thromboplast Time 25.8 Blood Urea Nitrogen 18 Creatinine 1.12 Random Glucose 103 Total Protein 6.7 Albumin 3.6 Calcium Level 8.9 Alkaline Phosphatase 53 Aspartate Amino Transf (AST/SGOT) 32 Alanine Aminotransferase (ALT/SGPT) 39 Total Bilirubin 0.7 Sodium Level 140 Potassium Level 4.3 Chloride Level 105 Carbon Dioxide Level 29.2 Anion Gap 6 Estimat Glomerular Filtration Rate 66 Total Creatine Kinase 203 180 164 Creatine Kinase MB 3.5 3.0 2.6 Troponin I LESS THAN 0.02 LESS THAN 0.02 LESS THAN 0.02 B-Type Natriuretic Peptide 51 Lipase 116 White Blood Count 5.2 Red Blood Count 4.53 Hemoglobin 14.9 Hematocrit 41.9 Mean Corpuscular Volume 92.4 Mean Corpuscular Hemoglobin 32.8 Mean Corpuscular Hemoglobin Concent 35.5 Red Cell Distribution Width 13.4 Platelet Count 167 Mean Platelet Volume 9.9 Neutrophils (%) (Auto) 54.1 Lymphocytes (%) (Auto) 33.8 Monocytes (%) (Auto) 7.5 Eosinophils (%) (Auto) 4.0 Basophils (%) (Auto) 0.6 Neutrophils # (Auto) 2.8 Lymphocytes # (Auto) 1.8 Monocytes # (Auto) 0.4 Eosinophils # (Auto) 0.2 Basophils # (Auto) 0.0 CBC Comment DIFF FINAL Differential Comment Result Diagram: 10/26/17 1853 10/26/17 1638 Imaging Last Impressions Chest X-Ray 10/26/17 1614 Signed Impressions: Service Date/Time: Thursday, October 26, 2017 17:56 - CONCLUSION: No acute cardiopulmonary disease. Javon Peña MD Assessment and Plan Problem List: (1) CHF (congestive heart failure) ICD Code: I50.9 - Heart failure, unspecified Status: Acute (2) Chest pain ICD Code: R07.9 - Chest pain, unspecified Assessment and Plan This is a 63-year-old male who has been admitted to the chest pain center because of worsening chest pain and shortness of breath. He has exertional chest pain relieved with sublingual nitroglycerin. He has associated diaphoresis but no nausea, dizziness and palpitations. He had recent outpatient stress test with this chart computer which was abnormal and recommended cardiac catheterization. Consultation has been requested by his attending to evaluate and manage multiple medical conditions and for transfer of care. At this time, patient denies chest pain. He also has improving shortness of breath. CP and SOB with abnormal stress test. Ruled out for [place]. Dw cards, for cardiac cath today. NPO. Ct asa, BB and statin Per pt, recent lipid profile was acceptable. Sinus bradycardia patient on beta-kayli. We will continue to monitor on telemetry CMP/CHF recent EF 35%. BNP WNL, continue Lasix, CHF education, I/O and monitor weight Hypertension and hyperlipidemia. Stable continue outpatient medications as appropriate DVT prophylaxis with SCD and early ambulation Discussed Condition With Patient. Problem Qualifiers (1) CHF (congestive heart failure): Qualified Codes: I50.9 - Heart failure, unspecified Sotero Rocha MD Oct 27, 2017 13:40
[2017-10-27] MEDS ORDERED: MISC INFORMATION XX ONE (13:45)
[2017-10-27] MEDS ORDERED: FUROSEMIDE 20 MG/2 ML VIAL IV PUSH ONE (13:45)
--- NOTE | 2017-10-27 14:21 | MA ---
cc: Nehemiah Glover DO 10/27/2017 PROCEDURE: Left heart catheterization, right heart catheterization, coronary angiogram, and ultrasound-guided access. PREPROCEDURE DIAGNOSES: Chest pain, shortness of breath, abnormal stress test. POSTPROCEDURE DIAGNOSES: Mild coronary artery disease, nonischemic cardiomyopathy with an ejection fraction of 25%, elevated left-sided filling pressures. MEDICATIONS: Fentanyl 50 mcg, heparin 4100 units, nitroglycerin 200 mcg. CONTRAST USED: 75 mL. FLUOROSCOPY: 8.3 minutes. MODERATE SEDATION: Zero minutes. ESTIMATED BLOOD LOSS: 10 mL. PROCEDURAL SUMMARY: Kg Mohan is a pleasant 62-year-old male who sees in the outpatient setting and has had increasing chest pain and shortness of breath. Because of this he underwent stress testing, which showed a large inferoapical infarction with moderate ischemia. Because of his insurance, he was unable to undergo cardiac catheterization in the outpatient setting. He attempted to treat this medically, but the chest pain and shortness of breath got worse and so he presented to [facility] Emergency Room. Because of the chest pain, shortness of breath and abnormal stress test, he was recommended cardiac catheterization. Risks, benefits, and alternatives were explained to him and he consented as such. He was brought to the lab and prepped in the usual sterile fashion. Right radial artery was accessed using a modified Seldinger technique and placement of a 5/6-Upper Sorbian Slender sheath. Right brachial vein was accessed using a modified Seldinger technique with ultrasound guidance and placement of a 5/6-Upper Sorbian Slender sheath. Both were easily aspirated and flushed. A Meridian-Arthur catheter was advanced to the wedge position and oxygen saturations as well as pressures were measured on the way back through the heart. Meridian-Arthur catheter was removed. A JR4 was advanced over a J wire to the ascending aorta and across the aortic valve for measurement of left ventricular pressure. This is pulled back across the aortic valve showing no significant gradient of aortic stenosis. JR4 was unable to engage the right coronary artery and so this was exchanged out for a JL3.5, which was used for selective angiography of the left coronary artery system. After this, a 3DRC was attempted, but unable to engage the right coronary artery and so finally an AR mod was used to do a nonselective angiogram of the right coronary artery system. This was removed over a J wire. Radial band was placed over the arteriotomy site for hemostasis. ACT was drawn and elevated and so brachial vein will be pulled once ACT is at an appropriate level. Patient left the labor relations consultant cardiovascularly stable. FINDINGS: Left main: Normal size vessel with adequate reflux and no significant disease. It bifurcates into an LAD and circumflex. LAD: Mild luminal irregularities with up to 20% disease in the proximal portion. Otherwise, no disease really noted in the LAD. He has 2 small diagonals with no significant disease. Left circumflex: Moderate to large size vessel with mild luminal irregularities in the proximal portion. It gives off 2 major obtuse marginals with no significant disease. RCA: Normal size vessel. It has an anterior takeoff. It supplies a PDA as well as a PLB with no significant disease. HEMODYNAMICS: RA 10. RV 33/6, RVEDP 13. PA 35/18, mean PA 25. Wedge 19. LVEDP 31. Cardiac output 4.2. Cardiac index 2.2. IMPRESSIONS: 1. Mild coronary artery disease by cardiac catheterization. 2. Nonischemic cardiomyopathy with ejection fraction of 20-25%. 3. Elevated left-sided filling pressures. 4. Chest pain and shortness of breath, most likely due to elevated left-sided filling pressures. RECOMMENDATIONS: 1. Mr. Mohan appears to have increased shortness of breath and chest pain most likely due to elevated left-sided filling pressures. 2. He will undergo diuresis while in the hospital. 3. He will be watched overnight and if stable in the morning discharge home for followup with While here, he will be placed on IV diuretics and most likely will need an increase of his diuresis for a few days to help his overall fluid balance. 4. Further recommendations will be made based on the hospital course. Thank you for allowing me to see Kg Mohan. If there are any questions, please do not hesitate to call. Nehemiah Glover, DO DAILEYP/cc , 01:50 PM , 02:19 PM
--- NOTE | 2017-10-27 14:57 | MB ---
cc: Nehemiah Glover DO DATE OF CONSULT: 10/27/2017 REASON FOR CONSULTATION: Chest pain, shortness of breath, abnormal stress test. HISTORY OF PRESENT ILLNESS: Kg Mohan is a pleasant 62-year-old male who presented to [facility] Emergency Room on October 26, 2017 due to chest pain and shortness of breath. He states that the shortness of breath has been relatively increased over the past month. Occasionally he does get some chest pains, although this is somewhat limited compared to the shortness of breath. 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 Holly and had a stress test on October 19 which showed inferior apical infarction with moderate ischemia. Due to his insurance Dr. Holly was unable to find anyone to cath him and so he was attempting to treat it medically as best as he could. As the patient had more significant chest pain and shortness of breath he came to the emergency room. Apparently, the patient states that whenever he took a nitro it seemed to help his symptoms within 15 minutes or so. PAST MEDICAL HISTORY: 1. Hypertension. 2. Hyperlipidemia. 3. Nonischemic cardiomyopathy. PAST SURGICAL HISTORY: Cardiac catheterization (2003) showing no significant coronary artery disease and moderate systolic dysfunction. ALLERGIES: NO KNOWN DRUG ALLERGIES MEDICATIONS: 1. Lipitor 80 mg every night. 2. Toprol XL 50 mg daily. 3. Lisinopril 20 mg daily. 4. Aspirin 325 mg daily. 5. Lasix 20 mg daily. FAMILY HISTORY: Denies premature coronary artery disease or sudden cardiac within the family. SOCIAL HISTORY: Denies tobacco, alcohol or drug abuse. REVIEW OF SYSTEMS: 14 systems were reviewed including osteopathic pertinent positives and negatives as above, otherwise negative. PHYSICAL EXAMINATION: VITAL SIGNS: Temperature 97.9, heart rate 62, blood pressure 109/93, respirations 18, pulse ox 92% on room air. GENERAL: The patient appears well, in no acute distress. Alert, awake and oriented x 3. HEENT: Extraocular muscles intact. Mucous membranes moist. NECK: Supple. No JVD at 45 degrees. No carotid bruits heard bilaterally. Carotid upstroke is brisk in nature. HEART: Regular rate and rhythm. Positive first and second heart sounds with no noted murmurs, gallops or rubs. LUNGS: Decreased breath sounds bilaterally but no overt wheezes, rales or rhonchi. ABDOMEN: Soft, nontender, nondistended. No organomegaly noted. EXTREMITIES: No clubbing, cyanosis or edema. Femoral and distal pulses intact bilaterally. NEUROLOGIC: No focal deficits. SKIN: Warm, dry and intact. OSTEOPATHIC: Mild lordosis. No kyphoscoliosis or paraspinal tender points. LABORATORY DATA: Hemoglobin 14.9, hematocrit 41.9, platelets 167. Potassium 4.3, BUN 18, creatinine 1.12. Troponin negative x 3. BNP 51. Electrocardiogram (October 26, 2017 at 22:31) sinus bradycardia, marked left axis deviation, left bundle branch block. IMPRESSIONS: 1. Chest pain, possibly due to coronary insufficiency. 2. Shortness of breath consistent with coronary insufficiency versus acute systolic heart failure. 3. Abnormal stress test. 4. Acute on chronic systolic heart failure. 5. Hypertension. 6. Hyperlipidemia. RECOMMENDATIONS: 1. Mr. Mohan presented with chest pain as well as shortness of breath. Overall his shortness of breath is the predominant feature. 2. Due to this as well as his abnormal stress test, I feel that progression of his coronary artery disease will need to be ruled out. He also has a new drop in his ejection fraction to 20-25%. Because of this I recommended right and left heart catheterization. 3. Risks, benefits and alternatives were explained to him and he consents as such. 4. Further recommendations will be made based on the hospital course. Thank you for allowing me to see Kg Mohan. If there are any questions, please do not hesitate to call. Nehemiah Glover, DO ELIZONDO/TL/rr , 01:44 PM , 02:13 PM
--- NOTE | 2017-10-27 16:02 | EKG ---
Date Performed: 10/26/2017 Time Performed: 22:31:00 PTAGE: 62 years EKG: SINUS BRADYCARDIA MARKED LEFT AXIS DEVIATION LEFT BUNDLE BRANCH BLOCK ABNORMAL ECG Since PREVIOUS TRACING , no significant change noted PREVIOUS TRACIN10/26/2017 19.57 DOCTOR: Marsha Shepard Interpretating Date/Time 10/27/2017 16:01:51
--- NOTE | 2017-10-27 16:04 | EKG ---
Date Performed: 10/26/2017 Time Performed: 19:57:06 PTAGE: 62 years EKG: SINUS BRADYCARDIA MARKED LEFT AXIS DEVIATION LEFT BUNDLE BRANCH BLOCK ABNORMAL ECG Since PREVIOUS TRACING , no significant change noted PREVIOUS TRACIN10/26/2017 16.32 DOCTOR: Marsha Shepard Interpretating Date/Time 10/27/2017 16:03:04
--- NOTE | 2017-10-27 16:05 | EKG ---
Date Performed: 10/26/2017 Time Performed: 16:32:34 PTAGE: 62 years EKG: SINUS BRADYCARDIA MARKED LEFT AXIS DEVIATION LEFT BUNDLE BRANCH BLOCK ABNORMAL ECG Since PREVIOUS TRACING , no significant change noted PREVIOUS TRACIN10/09/2005 19.50 DOCTOR: Marsha Shepard Interpretating Date/Time 10/27/2017 16:05:04
[2017-10-27] MEDS ORDERED: FUROSEMIDE 40 MG/4 ML VIAL ONE (16:22)
[2017-10-27] MEDS: DOCUSATE SODIUM 50 MG/SENNA 8.6 MG TAB PO SCH (20:45)
[2017-10-27] MEDS ORDERED: ATORVASTATIN 80 MG TAB PO SCH (21:00)
[2017-10-28] VITALS: BP 132/76; RESP 20; TEMP 98.7; O2SAT 95
[2017-10-28 03:51] VITALS: PULSE 51
[2017-10-28 04:00] VITALS: BP 98/54; PULSE 62; RESP 20; TEMP 98.1; O2SAT 96
[2017-10-28 08:00] VITALS: BP 118/79; PULSE 63; PULSE 85; RESP 18; TEMP 97.5; O2SAT 97
[2017-10-28] MEDS: METOPROLOL SUCCINATE 50 MG EXTENDED RELEASE TAB PO SCH (08:38)
[2017-10-28] MEDS: LISINOPRIL 20 MG TAB PO SCH (08:39)
[2017-10-28] MEDS: DOCUSATE SODIUM 50 MG/SENNA 8.6 MG TAB PO SCH (08:40)
[2017-10-28] MEDS: SODIUM CHLORIDE 0.9% FLUSH 10 ML FLUSH IV FLUSH SCH (08:40)
[2017-10-28] MEDS ORDERED: FUROSEMIDE 20 MG/2 ML VIAL IV PUSH SCH (09:00)
[2017-10-28] MEDS ORDERED: ASPIRIN 81 MG CHEW TAB CHEW SCH (09:00)
[2017-10-28 09:19] LABS: AUTOMATED NEUTROPHIL # 2.9 TH/MM3 (1.8-7.7); BASOPHIL % 0.4 % (0.0-2.0); EOSINOPHIL # 0.2 TH/MM3 (0-0.4); EOSINOPHIL % 3.9 % (0.0-4.0); HEMATOCRIT 39.9 % (39.0-51.0); HEMOGLOBIN 13.9 GM/DL (13.0-17.0); LYMPH % 31.5 % (9.0-44.0); LYMPHOCYTE # 1.6 TH/MM3 (1.0-4.8); MEAN CELL VOLUME 91.7 FL (80.0-100.0); MEAN CORPUSCULAR HEMOGLOBIN 31.9 PG (27.0-34.0); MEAN CORPUSCULAR HGB CONC 34.8 % (32.0-36.0); MONO % 7.8 % (0.0-8.0); MONOCYTE # 0.4 TH/MM3 (0-0.9); NEUT % 56.4 % (16.0-70.0); PLATELET COUNT 151 TH/MM3 (150-450); RED BLOOD COUNT 4.35 MIL/MM3 (4.50-5.90); RED CELL DISTRIBUTION WIDTH 13.1 % (11.6-17.2); WHITE BLOOD COUNT 5.2 TH/MM3 (4.0-11.0)
[2017-10-28 09:30] VITALS: BP 122/59; PULSE 60
[2017-10-28 09:36] LABS: BICARBONATE 26.7 MEQ/L (21.0-32.0); CALCIUM 8.1 MG/DL (8.5-10.1); CREATININE 1.01 MG/DL (0.60-1.30)
[2017-10-28] MEDS ORDERED: FURO20TA PO (11:32)
[2017-10-28] MEDS ORDERED: ASPI81 CHEW (11:32)
--- NOTE | 2017-10-28 11:32 | HHI.DS ---
Discharge Summary Admission Date Oct 26, 2017 at 19:48 Discharge Date: Oct 28, 2017 Admitting Diagnosis SOB, Chest pain (1) CHF (congestive heart failure) ICD Code: I50.9 - Heart failure, unspecified Status: Acute (2) Chest pain ICD Code: R07.9 - Chest pain, unspecified Procedures cardiac cath Brief History - From Admission This is a 63-year-old male with a history of CMP/CHF, hypertension and hyperlipidemia. He has been admitted to the chest pain center because of worsening chest pain and shortness of breath. He has exertional chest pain relieved with sublingual nitroglycerin. He has associated diaphoresis but no nausea, dizziness and palpitations. He had recent outpatient stress test with this glove former which was abnormal and recommended cardiac catheterization. Consultation has been requested by his attending to evaluate and manage multiple medical conditions and for transfer of care. At this time, patient denies chest pain. He also has improving shortness of breath. Discussed with Dr. Glover who plans to do cardiac catheterization this afternoon. He has been made n.p.o. All other systems reviewed negative t CBC/BMP: 10/28/17 0615 10/28/17 0615 Significant Findings Laboratory Tests Test 10/26/17 16:38 10/26/17 18:53 10/26/17 19:50 10/26/17 22:50 Estimat Glomerular Filtration Rate 66 ML/MIN (>89) Troponin I LESS THAN 0.02 NG/ML LESS THAN 0.02 NG/ML LESS THAN 0.02 NG/ML Test 10/28/17 06:15 Red Blood Count 4.35 MIL/MM3 (4.50-5.90) Calcium Level 8.1 MG/DL (8.5-10.1) Estimat Glomerular Filtration Rate 75 ML/MIN (>89) Imaging Last Impressions Chest X-Ray 10/26/17 1614 Signed Impressions: Service Date/Time: Thursday, October 26, 2017 17:56 - CONCLUSION: No acute cardiopulmonary disease. Javon Peña MD PE at Discharge GENERAL: This is an obese, well-developed patient, in no apparent distress. CARDIOVASCULAR: Regular rate and rhythm without murmurs, gallops, or rubs. RESPIRATORY: Clear to auscultation. Breath sounds equal bilaterally. No wheezes , rales, or rhonchi. GASTROINTESTINAL: Abdomen soft, non-tender, nondistended. No guarding. MUSCULOSKELETAL: Right wrist with dressing on c/d/di, no hematoma. Extremities without clubbing, cyanosis but with bilateral lower extremity pitting edema. No joint tenderness, effusion, or edema noted. No calf tenderness. Negative Homans sign bilaterally. NEUROLOGICAL: Awake and alert. Cranial nerves II through XII intact. Motor and sensory grossly within normal limits. Five out of 5 muscle strength in all muscle groups. Normal speech. Hospital Course This is a 63-year-old male who has been admitted to the chest pain center because of worsening chest pain and shortness of breath. He has exertional chest pain relieved with sublingual nitroglycerin. He has associated diaphoresis but no nausea, dizziness and palpitations. He had recent outpatient stress test with this glove former which was abnormal and recommended cardiac catheterization. Consultation has been requested by his attending to evaluate and manage multiple medical conditions and for transfer of care. At this time, patient denies chest pain. He also has improving shortness of breath. CP and SOB with abnormal stress test. Ruled out for VT. Dw cards, for cardiac cath today. Ct asa, BB and statin Per pt, recent lipid profile was acceptable. S/P cardiac cath mild coronary artery disease by cardiac catheterization. Nonischemic cardiomyopathy with ejection fraction of 20-25%. Cleared by cardiology Dr Taylor for DC to increase lasix at DC to 40 mg po daily. To follow up as OP with his cardiology Sinus bradycardia patient on beta-kayli. We will continue to monitor on telemetry CMP/CHF recent EF 35%. BNP WNL, continue Lasix, CHF education, I/O and monitor weight Hypertension and hyperlipidemia. Stable continue outpatient medications as appropriate DVT prophylaxis with SCD and early ambulation Discussed Condition With Patient, nurse Patient. He is cleared by cardiology for discharge. To follow-up with his cardiology doctor as outpatient. Discharge home in stable condition to follow- up with PCP and consultants as outpatient. Pt Condition on Discharge: Stable Discharge Disposition: Disch w/ Home Health Serv Discharge Time: > 30 minutes Discharge Instructions DIET: Follow Instructions for: Heart Healthy Diet, Diabetic Diet Activities you can perform: Regular-No Restrictions Follow up Referrals: Cardiology - 1 Week Cardiology with [facility] PCP Follow-up - 2-3 Days PCP Follow-up @ [facility] New Medications: Aspirin (Tgt Aspirin) 81 Mg Chw 81 MG CHEW DAILY for Blood Clot Prevention, #30 EA Changed Medications: Furosemide (Furosemide) 20 Mg Tab 40 MG PO DAILY for edema , #30 TAB 0 Refills (Changed from: 20 MG) Continued Medications: Atorvastatin (Atorvastatin) 80 Mg Tab 80 MG PO HS for Cholesterol Management, #30 TAB 0 Refills Lisinopril (Lisinopril) 20 Mg Tab 20 MG PO DAILY, #30 TAB 0 Refills Metoprolol Succinate ER 24 HR (Metoprolol Succinate ER 24 HR) 50 Mg Tab 50 MG PO DAILY for Blood Pressure Management, #30 TAB 0 Refills Discontinued Medications: Aspirin (Aspirin) 325 Mg Tab 325 MG PO DAILY, #30 TAB 0 Refills Rae Coroando MD Oct 28, 2017 11:32
[2017-10-28 12:00] VITALS: BP 95/62; PULSE 65; RESP 18; TEMP 97.5; O2SAT 95
--- NOTE | 2017-10-28 14:15 | PD.CARD.PN ---
Subjective Subjective Remarks No events overnight Feels well No SOB/CP Objective Medications Current Medications Medications (Trade) Dose Ordered Sig/Blanca Route Start Time Stop Time Status Last Admin (Lipitor) 80 mg HS PO 10/27/17 21:00 10/27/17 20:45 (Prinivil) 20 mg DAILY PO 10/27/17 11:00 10/28/17 08:39 (Toprol Xl) 50 mg DAILY PO 10/27/17 11:00 10/28/17 08:38 Sodium Chloride 500 ml @ 30 mls/hr [id number] PRN IV 10/27/17 11:30 10/30/17 11:29 (Betadine 5% Antisepsis Kit) 1 applic HOME ASSESSMENT NURSE PRN EACH NARE 10/27/17 11:30 10/30/17 11:29 (Chlorhexidine 2% Cloth) 3 pack HOME ASSESSMENT NURSE PRN TOPICAL 10/27/17 11:30 10/30/17 11:29 (NS Flush) 2 ml UNSCH PRN IV FLUSH 10/27/17 13:30 (NS Flush) 2 ml BID IV FLUSH 10/27/17 21:00 10/28/17 08:40 (Tylenol) 650 mg Q4H PRN PO 10/27/17 13:30 (Zofran Inj) 4 mg Q6H PRN IVP 10/27/17 13:30 (Tylenol) 650 mg Q6H PRN PO 10/27/17 13:30 (Narcan Inj) 0.4 mg UNSCH PRN IV PUSH 10/27/17 13:30 (Keturah-Colace) 1 tab BID PO 10/27/17 21:00 (Milk Of Magnesia Liq) 30 ml Q12H PRN PO 10/27/17 13:30 (Senokot) 17.2 mg Q12H PRN PO 10/27/17 13:30 (Dulcolax Supp) 10 mg DAILY PRN RECTAL 10/27/17 13:30 (Lactulose Liq) 30 ml DAILY PRN PO 10/27/17 13:30 (Lasix Inj) 20 mg DAILY IV PUSH 10/28/17 09:00 10/28/17 08:40 (Aspirin Chew) 81 mg DAILY CHEW 10/28/17 09:00 10/28/17 08:39 Vital Signs / I&O Vital Signs Date Time Temp Pulse Resp B/P (MAP) Pulse Ox O2 Delivery O2 Flow Rate FiO2 10/28/17 12:00 97.5 65 18 95/62 (73) 95 10/28/17 09:30 60 122/59 (80) 10/28/17 08:00 97.5 63 18 118/79 (92) 97 10/28/17 08:00 85 10/28/17 08:00 96 Room Air 10/28/17 04:00 98.1 62 20 98/54 (69) 96 10/28/17 03:51 51 10/28/17 00:00 98.7 20 132/76 (94) 95 10/27/17 23:59 89 10/27/17 20:48 Room Air 10/27/17 20:15 72 10/27/17 20:00 97.9 70 20 140/89 (106) 95 10/27/17 19:07 98.0 53 19 157/88 (111) 98 I/O 10/27/17 10/27/17 10/27/17 10/28/17 10/28/17 10/28/17 07:00 15:00 23:00 07:00 15:00 23:00 Intake Total 300 ml 480 ml Balance 300 ml 480 ml Intake Oral 480 ml IV Total 300 ml # Voids 2 Physical Exam GENERAL: NAD, AAOx3 SKIN: Warm and dry. HEAD: Atraumatic. Normocephalic. EYES: Pupils equal and round. No scleral icterus. No injection or drainage. ENT: No nasal bleeding or discharge. Mucous membranes pink and moist. NECK: Trachea midline. No JVD. CARDIOVASCULAR: Regular rate and rhythm. RESPIRATORY: No accessory muscle use. Clear to auscultation. Breath sounds equal bilaterally. GASTROINTESTINAL: Abdomen soft, non-tender, nondistended. Hepatic and splenic margins not palpable. MUSCULOSKELETAL: Extremities without clubbing, cyanosis, or edema. No obvious deformities. Right radial no hematoma, neurovascularly intact distally NEUROLOGICAL: Awake and alert. No obvious cranial nerve deficits. Motor grossly within normal limits. Five out of 5 muscle strength in the arms and legs. Normal speech. PSYCHIATRIC: Appropriate mood and affect; insight and judgment normal. Laboratory Laboratory Tests Test 10/28/17 06:15 White Blood Count 5.2 TH/MM3 Red Blood Count 4.35 MIL/MM3 Hemoglobin 13.9 GM/DL Hematocrit 39.9 % Mean Corpuscular Volume 91.7 FL Mean Corpuscular Hemoglobin 31.9 PG Mean Corpuscular Hemoglobin Concent 34.8 % Red Cell Distribution Width 13.1 % Platelet Count 151 TH/MM3 Mean Platelet Volume 10.0 FL Neutrophils (%) (Auto) 56.4 % Lymphocytes (%) (Auto) 31.5 % Monocytes (%) (Auto) 7.8 % Eosinophils (%) (Auto) 3.9 % Basophils (%) (Auto) 0.4 % Neutrophils # (Auto) 2.9 TH/MM3 Lymphocytes # (Auto) 1.6 TH/MM3 Monocytes # (Auto) 0.4 TH/MM3 Eosinophils # (Auto) 0.2 TH/MM3 Basophils # (Auto) 0.0 TH/MM3 CBC Comment DIFF FINAL Differential Comment Blood Urea Nitrogen 17 MG/DL Creatinine 1.01 MG/DL Random Glucose 89 MG/DL Calcium Level 8.1 MG/DL Sodium Level 140 MEQ/L Potassium Level 4.1 MEQ/L Chloride Level 106 MEQ/L Carbon Dioxide Level 26.7 MEQ/L Anion Gap 7 MEQ/L Estimat Glomerular Filtration Rate 75 ML/MIN Assessment and Plan Problem List: (1) Chest pain ICD Codes: R07.9 - Chest pain, unspecified (2) CHF (congestive heart failure) ICD Codes: I50.9 - Heart failure, unspecified Status: Acute (3) NICM (nonischemic cardiomyopathy) ICD Codes: I42.8 - Other cardiomyopathies Assessment and Plan 1) NICM with EF 20-25% 2) No significant CAD 3) Elevated left sided filling pressures Diuresed and feels better, will continue on Lasix 40mg PO for 2-3 days then back to 20mg daily Watch blood pressure at home 4) Cardiovascularly stable for discharge Follow up with Dr. Holly Problem Qualifiers (1) Chest pain: Qualified Codes: R07.89 - Other chest pain (2) CHF (congestive heart failure): Qualified Codes: I50.9 - Heart failure, unspecified Nehemiah Glover DO Oct 28, 2017 14:15
--- NOTE | 2017-10-28 15:57 | HHI.FF ---
Face to Face Verification Diagnosis: (1) NICM (nonischemic cardiomyopathy) (2) Chest pain Home Health Nursing Order: Medical education Signs/symptoms of disease process CHF education Medication education-adverse effect Nursing assessment with vital signs I have seen patient Kg Mohan on 10/28/17. My clinical findings support the need for the requested home health care services because: Ltd mobility - disease progression Patient has SOB I certify that my clinical findings support that this patient is homebound because: Post-op weakness Unsteady gait/balance Rae Coronado MD Oct 28, 2017 15:57
== END 2017-10-28 14:37 | disposition home health service (06) ==
LOC: NEPC 15:58 → NEDA 19:48 → NEPFCDU 20:19 → HCIS 10-27 12:25 → N04B 10-27 17:48
PROVIDERS: ADMIT Hospitalist; ATTEND Hospitalist
DX: R07.89 Other chest pain (principal); R06.02 Shortness of breath; R61 Generalized hyperhidrosis; I25.10 Atherosclerotic heart disease of native coronary artery without angina pectoris; I11.0 Hypertensive heart disease with heart failure; I50.23 Acute on chronic systolic (congestive) heart failure; I42.8 Other cardiomyopathies; R94.39 Abnormal result of other cardiovascular function study; I44.7 Left bundle-branch block, unspecified; R00.1 Bradycardia, unspecified; R94.31 Abnormal electrocardiogram [ECG] [EKG]; E78.5 Hyperlipidemia, unspecified; Z79.899 Other long term (current) drug therapy; Z79.82 Long term (current) use of aspirin
CPT/HCPCS: 71046; 80048; 80053; 82550; 82552; 82810; 83690; 83880; 84484; 85002; 85025; 85610; 85730; 93005; 93460; 99285; C1769; C1893; G0378; J1644; J1940; J2250; J3010; J7030; Q9967